=== PATIENT | female | born 1995 | race Caucasian/White ===

== ENCOUNTER → 2016-10-01 | Day surgery (SDC) | payer BC ==
[~2016-10-01] MED LIST: ALBUTEROL 0.5ML INH; ALBUTEROL20 ml INH; IBUPROFEN800 MG PO; SINGULAIR PO
--- NOTE | ~2016-10-01 | OR ---
Unit #: [id number] #: [id number] Patient: MAXX BELTRÁN [id number] [facility] [address]. [place], [place] [address] [id number] O MR#: [id number] NAME: MAXX BELTRÁN ROOM: Date of Procedure: 10/01/2016 Admission Date: 10/01/2016 Surgeon: Javi Small M.D. : 1995 Attending Physician: Javi Small M.D. Primary Care Physician: Primary Care Physician No OPERATIVE REPORT PRIMARY CARE PHYSICIAN Dr. Rossi. PREOPERATIVE DIAGNOSIS History of colitis with abnormal CT scan. POSTOPERATIVE DIAGNOSIS Normal colon and rectum. PROCEDURE PERFORMED Colonoscopy to cecum. ANESTHESIA Monitored anesthesia. INDICATIONS FOR PROCEDURE A 21-year-old female who was complaining of some abdominal discomfort, was seen in the ER because of diarrhea and abdominal pain. CT scan showed inflammation in the transverse colon. She was put on antibiotics and subsequently improved. She was referred for endoscopic evaluation to rule out inflammatory bowel disease. DESCRIPTION OF PROCEDURE The patient was admitted to [facility], positively identified, and transported to the endoscopy unit. After appropriate monitoring and positioning, she was sedated by the nurse patent drafter. On rectal examination, there was no local anorectal pathology and digital examination was normal. Colonoscope was passed through the anal verge throughout the extent of the colon to the cecum, where the appendiceal orifice and ileocecal valve were photodocumented. On careful antegrade and retrograde visualization, there were no abnormalities throughout the colon. In the rectal vault, I retroflexed the scope and there was no internal hemorrhoidal disease. The patient tolerated the procedure well and was transferred recovery in stable condition. Findings were discussed with her mother. At this time, she should follow up with her primary care physician. She does not require any routine followup endoscopic evaluation at this time. Dictated by... Javi Small M.D. Unit #: [id number] #: [id number] Patient: MAXX BELTRÁN RS/modl TD: 10/01/2016 08:29 JOB #: [id number] OPERATIVE REPORT Page 1 of 1 X Javi Small MD PROCEDURE OPERATIVE NOTE
== END | disposition home or self-care (01) ==
LOC: COPS 06:03
DX: R19.7 Diarrhea, unspecified (principal); R10.9 Unspecified abdominal pain; R93.3 Abnormal findings on diagnostic imaging of other parts of digestive tract; Z87.19 Personal history of other diseases of the digestive system
CPT/HCPCS: 84703